=== PATIENT | female | born 1985 | race Caucasian/White ===

== ENCOUNTER 2023-12-19 07:53 | Outpatient (OUT) | payer MEDICAID, SELFPAY ==
--- NOTE | 2023-12-19 08:29 | ECG_ITS ---
[facility] Test Date: 2023-12-19 Pat Name: AKIRA العراقي Department: Room: - Gender: Female [employer] Administrator: : [id number] Requested By: OTILIO ALEXANDER Order Number: [id number] Reading MD: BALWINDER AARON Measurements Intervals Arthur Rate: 79 P: 72 NC: 164 QRS: 84 QRSD: 92 T: 38 QT: 376 QTc: 433 Interpretive Statements SINUS RHYTHM No previous ECG available for comparison Electronically Signed On 12-19-2023 23:03:18 EDT by BALWINDER AARON
--- NOTE | 2023-12-19 08:53 | PM.PRESUREVA ---
History of Present Illness History of Present Illness Chief complaint: missed ab Narrative: Patient presents for preadmission testing. The patient states she missed her period and has an unplanned , went for her appointment and it was determined that she had a missed . The patient states she has not had any abdominal pain, cramping, vaginal bleeding, nausea, vomiting, or any other complaints. Patient states she was diagnosed with type 1 diabetes while with her twins approximately one year ago when she experienced DKA. She states her blood sugars are usually well controlled, however she believes this morning she may have given herself too much insulin. She states she ate pasta for breakfast and gave herself six units of short-acting insulin and her blood sugar is now below sixty, and she is feeling like her sugar is low. The patient was given nutrition in preadmission testing, her blood sugar did increase and she is feeling better at this time. Review of Systems ROS Narrative REVIEW OF SYSTEMS: Negative except as stated in HPI, ten or more systems reviewed. Constitutional: No fever , chills, weakness ENT: No sore throat or epistaxis Cardiovascular: No edema, chest pain, palpitations, or activity intolerance Respiratory: No shortness of breath, cough, or wheezing Musculoskeletal: No joint pain or swelling Gastrointestinal: No abdominal pain, constipation, diarrhea, or vomiting Genitourinary: No dysuria or hematuria Neurological: No numbness, tingling, weakness, or headache Psychiatric: No mood changes [facility] Medical History (Updated 12/19/23 @ 08:36 by Ashley Solano NP) COVID-19 ?U07.1 - COVID-19 (ICD-10) PCOS (polycystic ovarian syndrome) ?E28.2 - Polycystic ovarian syndrome (ICD-10) Missed ?O02.1 - Missed (ICD-10) Type I diabetes mellitus ?E10.9 - Type 1 diabetes mellitus without complications (ICD-10) DKA (diabetic ketoacidosis) (08/2023) ?E11.10 - Type 2 diabetes mellitus with ketoacidosis without coma (ICD-10) Diastasis recti ?M62.08 - Separation of muscle (nontraumatic), other site (ICD-10) Delayed emergence from anesthesia ?T88.59XA - Other complications of anesthesia, initial encounter (ICD-10) Postoperative nausea and vomiting ?R11.2 - Nausea with vomiting, unspecified (ICD-10) ?Z98.890 - Other specified postprocedural states (ICD-10) Encounter for removal of skin lesion ?L98.9 - Disorder of the skin and subcutaneous tissue, unspecified (ICD-10) Surgical History (Updated 12/19/23 @ 08:36 by Ashley Solano NP) History of section ?Z98.891 - History of uterine scar from previous surgery (ICD-10) S/P middle ear reconstruction ?Z98.890 - Other specified postprocedural states (ICD-10) History of myringotomy ?Z98.890 - Other specified postprocedural states (ICD-10) History of dilation and curettage ?Z98.890 - Other specified postprocedural states (ICD-10) Family History (Updated 12/19/23 @ 08:36 by Ashley Solano NP) Other Family history of diabetes mellitus Family history of hypertension Family history of myocardial infarction Family history of skin cancer Family history of stroke Social History (Updated 12/19/23 @ 08:22 by Ashley Solano NP) Within the past year, how often did you have a drink containing alcohol: never Score interpretation: A score less than 3 is consistent with normal alcohol consumption. 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[employer], previous law enforcement Highest level of school completed/degree received: Associate degree: academic program Meds Home Medications and Allergies Home Medications ?Medication ?Instructions ?Recorded ?Confirmed ?Type blood-glucose meter,continuous 12/19/23 12/19/23 History (FreeStyle García 3 [place]) blood-glucose sensor (FreeStyle 12/19/23 12/19/23 History García 3 Sensor device) insulin glargine 100 unit/mL (3 20 unit subcut BID 12/19/23 12/19/23 History mL) subcutaneous pen (Lantus Solostar U-100 Insulin) insulin lispro 100 unit/mL 1 sliding scale dose subcut QID 12/19/23 12/19/23 History subcutaneous half-unit pen metformin 1,000 mg tablet 1,000 mg PO BID 12/19/23 12/19/23 History pen needle, diabetic 31 gauge x 12/19/23 12/19/23 History 3/16 Allergies Allergy/AdvReac Type Severity Reaction Status Date / Time oxycodone Allergy Hives Verified 12/19/23 08:16 Exam Narrative Exam Narrative: Constitutional: Awake, alert, comfortable, well-appearing, nontoxic, interactive, vital signs as charted Head: Normocephalic, atraumatic Neck: Supple, normal appearance, normal range of motion, no meningeal signs, no lymphadenopathy Respiratory: No respiratory distress, breath sounds clear Cardiovascular: Regular rate and rhythm, strong and regular heart tones Abdomen: Nontender, normal bowel sounds, soft, no CVA tenderness Musculoskeletal: Normal gait, no swelling or edema Skin: No rashes or induration, no lesions, only visible skin inspected Neuro: No neurological deficits, normal sensation Psychiatric: Oriented ?3, normal affect Assessment and Plan Assessment and Plan (1) Missed : Plan D and C scheduled with Dr. Samuel 12/20/2023.
[2023-12-19 08:59] LABS: Basophils Absolute Auto 0.1 10^3/uL (0.0-0.1); Basophils Percent Auto 0.5 % (0.2-2.0); Eosinophils Absolute Auto 0.1 10^3/uL (0.0-0.7); Eosinophils Percent Auto 0.9 % (0.9-7.0); Hematocrit 39.8 % (36.0-48.0); Immature Granulocytes Abs Auto 0.04 10^3/uL (0.00-0.03); Immature Granulocytes Pct Auto 0.3 % (0.0-0.5); Lymphocytes Absolute Auto 2.1 10^3/uL (1.2-3.8); Lymphocytes Percent Auto 17.3 % (20.5-60.0); Mean Corpuscular HGB Conc 35.2 g/dL (29.9-35.2); Mean Corpuscular Hemoglobin 32.9 pg (26.7-34.0); Mean Corpuscular Volume 93.6 fL (81.0-99.0); Mean Platelet Volume 8.8 fL (9.5-13.5); Monocytes Absolute Auto 0.6 10^3/uL (0.3-0.8); Monocytes Percent Auto 5.1 % (1.7-12.0); Neutrophils Absolute Auto 9.2 10^3/uL (1.4-6.5); Neutrophils Percent Auto 75.9 % (43.0-75.0); Platelet Count 284 10^3/uL (150-450); Red Blood Count 4.25 10^6/uL (4.20-5.40); Red Cell Distribution Width 11.6 % (11.0-15.0); White Blood Count 12.2 10^3/uL (4.0-11.0)
[2023-12-19 09:27] LABS: Anion Gap 11.6; Calcium 9.6 mg/dL (8.5-10.1); Carbon Dioxide 25.4 mmol/L (21.0-32.0); Chloride 105 mmol/L (98-107); Estimated GFR (African America >60 (>=60); Estimated GFR (Non-African Ame >60 (>=60); Glucose 89 mg/dL (74-106); Sodium 138 mmol/L (136-145)
[2023-12-19 10:18] LABS: BUN Creatinine Ratio 22.6
[2023-12-19 11:09] LABS: HCG Quantitative 32452 mIU/mL
== END 2023-12-19 07:54 | disposition home or self-care (01) ==
LOC: PST 07:58
PROVIDERS: PCP Family Medicine; Visit Provider Obstetrics & Gynecology
DX: Z01.810 Encounter for preprocedural cardiovascular examination (principal); Z01.812 Encounter for preprocedural laboratory examination; Z01.818 Encounter for other preprocedural examination; O02.1 Missed abortion
CPT/HCPCS: 80048; 84702; 85025; 93005; G0463

== ENCOUNTER 2023-12-20 06:02 | Day surgery (SDC) | payer MEDICAID, SELFPAY ==
[2023-12-19 08:47] VITALS: BP 110/72; PULSE 71; TEMP 36.6; O2SAT 98; BMI 25.7
[2023-12-20] VITALS (12 sets, daily range): BP systolic 102–124; BP diastolic 62–76; PULSE 69–93; TEMP 36.3; O2SAT 93–100; BMI 26.3
--- OUTSIDE RECORDS SUMMARY | 2023-12-20 06:04 | XMS_ITS | CCD ---
Author Organization [facility] Care Team Providers Care Quantitative Manager Name Role Phone NAIF, DR LOPES Primary Care Unavailable DANI, DR LEONEL Ro Attending Unavailable DANI, DR LEONEL Ro Consulting Unavailable DANI, DR LEONEL Ro Admitting Unavailable Rosette Disla MD Primary Care Provider [phone] NAIF ROSETTE French Referring Unavailable NAIF, ROSETTE Braswell Primary Care Unavailable MARTA TROTTER Admitting Unavailable MARTA TROTTER Attending Unavailable NAIF ROSETTE Braswell Primary Care Unavailable ANJELICA CARRERA Attending Unavailable NAIF, ROSETTE Braswell Primary Care Unavailable NAIF, ROSETTE Braswell Referring Unavailable NAIF, ROSETTE Braswell Primary Care Unavailable BARBI BARTON Attending Unavailable BARBI BARTON Referring Unavailable NAIF, ROSETTE Braswell Primary Care Unavailable BARBI BARTON Referring Unavailable NAIF, ROSETTE Braswell Primary Care Unavailable Naif BURDEN, Rosette Braswell Primary Care Provider [phone] PREMA CHRISTIANSON Attending Unavailable NAIF, ROSETTE Braswell Referring Unavailable NAIF, ROSETTE Braswell Primary Care Unavailable PREMA CHRISTIANSON Attending Unavailable NAIF ROSETTE Braswell Referring Unavailable NAIF, ROSETTE Braswell Primary Care Unavailable NAIF ROSETTE Braswell Attending Unavailable NAIF, ROSETTE Braswell Attending Unavailable ANIF ROSETTE Braswell Attending Unavailable JORDON MARROQUIN Attending Unavailable LOPEZ JORDON L Referring Unavailable TERAO JORDON L Referring Unavailable Allergies Allergy Classification Reported Allergen(s) Allergy Type Date of Onset Reaction(s) Facility (8 sources) Acetaminophen / oxyCODONE; Translations: [OXYCODONE-ACETAMI NOPHEN] Drug Allergy 09-04-2023 [facility] Medications Current Medications Medication Drug Class(es) Dates Sig (Normalized) Sig (Original) Continuous Blood Gluc Skein Winder (Lopoly García 3 [place]) device (3 sources) Start: 09-18-2023 Continuous Blood Gluc Skein Winder (FreeStyle García 3 [place]) device Indications: Diabetes mellitus type 2, insulin dependent (CMS/HCC) 1 kit every 14 (fourteen) days 1 each 1 09/18/2023 Active Continuous Blood Gluc Sensor (FreeStyle García 3 Sensor) misc (3 sources) Start: 09-18-2023 apply 1 dose transdermal route once Continuous Blood Gluc Sensor (FreeStyle García 3 Sensor) misc Indications: Diabetes mellitus type 2, insulin dependent (CMS/HCC) 1 patch every 14 (fourteen) days 12 each 3 09/18/2023 Active 0.5 ml dulaglutide 1.5 mg/ml auto-injector (8 sources) GLP-1 Receptor Agonist Start: 07-17-2023 TRULICITY 0.75 mg/0.5 mL pen injector Inject 0.5 mL (0.75 mg total) under the skin. 0 07/17/2023 Active Start: 07-17-2023 inject 0.75 mg by mayorga bcutaneous injection every week dulaglutide (Trulicity) 0.75 MG/0.5ML solution pen-injector Indications: Diabetes mellitus due to underlying condition with hyperglycemia, without long-term current use of insulin (CMS/HCC) Inject 0.75 mg under the skin 1 (one) time per week 4 each 11 07/17/2023 Active 3 ml insulin glargine 100 unt/ml pen injector (3 sources) Insulin Analog Start: 09-22-2023 End: 09-21-2024 inject 10 [IU] by subcutaneous injection at bedtime insulin glargine (Lantus SoloStar) 100 UNIT/ML pen Indications: Diabetes mellitus type 2, insulin dependent (CMS/HCC) Inject 10 Units under the skin at bedtime 3 mL 12 09/22/2023 09/21/2024 Active Start: 09-18-2023 End: 09-17-2024 inject 10 [IU] by subcutaneous injection at bedtime insulin glargine (Lantus) 100 UNIT/ML injection Indications: Diabetes mellitus type 2, insulin dependent (CMS/HCC) Inject 10 Units under the skin at bedtime 10 mL 12 09/18/2023 09/17/2024 Active 0.5 unt doses 3 ml insulin lispro 100 unt/ml pen injector (3 sources) Insulin Analog Start: 09-20-2023 insulin lispro (HumaLOG) 100 UNIT/ML injection Indications: Diabetes mellitus type 2, insulin dependent (CMS/HCC) Inject 4 Units under the skin in the morning and 4 Units at noon and 4 Units in the evening. Inject with meals. 3 each 1 09/20/2023 Active Start: 09-18-2023 Insulin Lispro (HumaLOG) 100 UNIT/ML solution Indications: Diabetes mellitus type 2, insulin dependent (CMS/HCC) Inject 4 Units as directed in the morning and 4 Units at noon and 4 Units in the evening. Inject before meals. 10 mL 1 09/18/2023 Active metFORMIN hydrochloride 1000 mg oral tablet (8 sources) Biguanide Start: 06-04-2023 End: 06-03-2024 take 1 tablet by mouth in the morning metFORMIN (Glucophage) 1000 MG tablet Indications: Type 2 diabetes mellitus without complication, without long-term current use of insulin (CMS/HCC) Take 1 tablet (1,000 mg) by mouth in the morning and 1 tablet (1,000 mg) in the evening. Take with meals. 180 tablet 3 06/04/2023 06/03/2024 Active Start: 11-16-2022 take 2 tablets by mo ut every twenty-four hours in the morning, then take 2 tablets by mouth at mealtime metFORMIN XR (GLUCOPHAGE XR) 500 mg 24 hr tablet Take 2 tablets (1,000 mg total) by mouth in the morning and 2 tablets (1,000 mg total) in the evening. Take with meals. 60 tablet 1 11/16/2022 Active MV-Min-Fe Fum-FA-DH A ( 1 PO) (4 sources) MV-Min- Fe Fum-FA-DHA ( 1 PO) Take by mouth. OTC 0 Active vits-iron fum-folic 27-1 mg tablet (4 sources) vits-ir on fum-folic 27-1 mg tablet Take by mouth daily. 0 Active Completed/Discontinued Medications Medication Drug Class(es) Dates Sig (Normalized) Sig (Original) amoxicillin 875 mg / clavulanate 125 mg oral tablet (3 sources) Penicillin-class Antibacterial Start: 08-25-2023 End: 09-17-2023 take 1 tablet by mouth once in the morning amoxicillin-pot clavulanate (AUGMENTIN) 875-125 mg per tablet Take 1 tablet by mouth in the morning and 1 tablet before bedtime. 0 08/25/2023 09/17/2023 Discontinued (Therapy completed) Blood Glucose Monitoring Suppl (True Metrix Air Glucose Meter) w/Device kit (3 sources) Start: 09-18-2023 End: 09-18-2023 Blood Glucose Monitoring Suppl (True Metrix Air Glucose Meter) w/Device kit Indications: Diabetes mellitus due to underlying condition with hyperglycemia, without long-term current use of insulin (CMS/HCC) 1 kit in the morning and 1 kit in the evening and 1 kit before bedtime. 1 kit 1 09/18/2023 09/18/2023 Discontinued (Ineffective) Start: 06-29-2023 End: 09-18-[address] (True Metrix Air Glucose Meter) w/Device kit Indications: Diabetes mellitus due to underlying condition with hyperglycemia, without long-term current use of insulin (CMS/HCC) 1 kit in the morning and 1 kit in the evening and 1 kit before bedtime. 1 kit 1 06/29/2023 09/18/2023 Discontinued (Reorder) Start: 06-29-2023 Blood Glucose Monitoring Suppl (True Metrix Air Glucose Meter) w/Device kit Indications: Diabetes mellitus due to underlying condition with hyperglycemia, without long-term current use of insulin (CMS/HCC) 1 kit in the morning and 1 kit in the evening and 1 kit before bedtime. 1 kit 1 06/29/2023 Active hydrocortisone 10 mg/ml topical cream (3 sources) Corticosteroid Start: 11-20-2022 End: 09-04-2023 hydrocortisone (HYTONE) 1 % cream Apply 1 Application topically in the morning and 1 Application before bedtime. 30 g 1 11/20/2022 09/04/2023 Discontinued (Therapy completed) Semaglutide,0.25 or 0.5MG/DOS, (Ozempic, 0.25 or 0.5 MG/DOSE,) 2 MG/3ML solution pen-injector (2 sources) Start: 06-04-2023 End: 09-18-2023 Semaglutide,0.25 or 0.5MG/DOS, (Ozempic, 0.25 or 0.5 MG/DOSE,) 2 MG/3ML solution pen-injector Indications: Type 2 diabetes mellitus without complication, without long-term current use of insulin (CMS/HCC) Inject 0.25 mg under the skin every 7 (seven) days for 14 days, THEN 0.5 mg every 7 (seven) days. .25 mg subcutaneous q week x 2 weeks then .5 mg qweek. 3 mL 1 06/04/2023 09/18/2023 Discontinued (Cost of medication) Start: 06-04-2023 Semaglutide,0. 25 or 0.5MG/DOS, (Ozempic, 0.25 or 0.5 MG/DOSE,) 2 MG/3ML solution pen-injector Indications: Type 2 diabetes mellitus without complication, without long-term current use of insulin (CMS/HCC) Inject 0.25 mg under the skin every 7 (seven) days for 14 days, THEN 0.5 mg every 7 (seven) days. .25 mg subcutaneous q week x 2 weeks then .5 mg qweek. 3 mL 1 06/04/2023 Active Problems Active Problems Problem Classification Problem Date Documented Date Episodic/Chronic Adjustment disorders (4 sources) Adjustment disorder with depressed mood; Translations: [Adjustment disorder with depressed mood] Onset: 12-25-2018 08-30-2022 Chronic Anxiety disorders (4 sources) Anxiety; Translations: [Anxiety disorder, unspecified] Onset: 01-27-2021 08-30-2022 Chronic Diabetes mellitus with complications (2 sources) Type 2 diabetes mellitus with diabetic nephropathy; Translations: [Secondary diabetes mellitus] Onset: 11-20-2022 09-18-2023 Chronic Diabetes mellitus without complication (6 sources) Type 2 diabetes mellitus; Translations: [Type 2 diabetes mellitus without complications] 11-20-2022 Chronic Esophageal disorders (4 sources) Gastroesophageal reflux disease without esophagitis; Translations: [Gastro-esophageal reflux disease without esophagitis] Onset: 12-25-2018 08-30-2022 Chronic Other and unspecified benign neoplasm (1 source) Lipoma of anterior chest wall; Translations: [Benign lipomatous neoplasm of skin and subcutaneous tissue of trunk] 08-27-2023 Episodic Other and unspecified benign neoplasm (1 source) Benign lipomatous neoplasm of skin and subcutaneous tissue of trunk; Translations: [Benign lipomatous neoplasm of skin and subcutaneous tissue of trunk] Onset: 08-27-2023 Episodic Other connective tissue disease (1 source) Diastasis recti; Translations: [Separation of muscle (nontraumatic), other site] 09-18-2023 Episodic Other skin disorders (2 sources) Epidermal cyst; Translations: [Epidermal cyst] Onset: 09-04-2023 Episodic Other skin disorders (1 source) Epidermoid cyst; Translations: [Epidermal cyst] 09-17-2023 Episodic Other upper respiratory disease (1 source) Nasal congestion; Translations: [NASAL CONGESTION] Onset: 04-28-2021 Episodic Other upper respiratory infections (1 source) Acute pharyngitis, unspecified; Translations: [ACUTE PHARYNGITIS UNSPECIFIED] Onset: 04-28-2021 Episodic Unclassified (3 sources) CONTACT W/AND (SUSP) EXPOS COVID-19; Translations: [CONTACT W/AND (SUSP) EXPOS COVID-19] Onset: 04-28-2021 Unclassified (1 source) left upper anterior chest wall lipoma Onset: 09-04-2023 Unclassified (1 source) Post-op Onset: 09-17-2023 Past or Other Problems Problem Classification Problem Date Documented Da te Episodic/Chronic Bacterial infection; unspecified site (4 sources) Bacteria present; Translations: [Streptococcus, group B, as the cause of diseases classified elsewhere] Onset: 10-13-2022 Resolved: 11-20-2022 11-20-2022 Episodic Early or threatened labor (8 sources) Finding of uterine contractions; Translations: [False labor, unspecified] Onset: 10-11-2022 Resolved: 10-18-2022 11-13-2022 Episodic Other complications of ; puerperium affecting management of mother (4 sources) Central nervous system malformation in fetus affecting obstetrical care; Translations: [ BOARD TURNER malformation, fetus 2] Onset: 08-01-2022 Resolved: 11-20-2022 11-20-2022 Episodic Other complications of ; puerperium affecting management of mother (4 sources) Abnormality of heart; Translations: [ cardiac anomaly complicating , antepartum, fetus 2] Onset: 11-01-2022 Resolved: 11-20-2022 11-20-2022 Episodic Other and delivery including normal (4 sources) Dichorionic diamniotic twin ; Translations: [Twin , dichorionic/diamnio tic, unspecified trimester] Onset: 08-01-2022 Resolved: 11-20-2022 11-20-2022 Episodic Otitis media and related conditions (8 sources) Perforation of left tympanic membrane; Translations: [Unspecified perforation of tympanic membrane, left ear] Onset: 09-30-2019 Resolved: 04-28-2022 04-28-2022 Episodic Residual codes; unclassified (4 sources) ultrasound scan abnormal; Translations: [Kidney abnormality of fetus on ultrasound] Onset: 08-31-2022 Resolved: 11-20-2022 11-20-2022 Episodic Thyroid disorders (4 sources) Subclinical hypothyroidism; Translations: [Other specified hypothyroidism] Onset: 01-15-2020 Resolved: 11-20-2022 11-20-2022 Chronic Unclassified (1 source) CONTACT W/AND (SUSP) EXPOS COVID-19; Translations: [CONTACT W/AND (SUSP) EXPOS COVID-19] Onset: 04-11-2021 Results Test Name Value Interpretation Reference Range Facil ity US OB < 14 WEEKS EARLYon US OB < 14 WEEKS EARLY FINDINGS: Comparison made with recent examination of December 12, 2023. Interval increase in size of of the pole currently current crown-rump length 10 mm in diameter would suggest a 7 week and 0 day gestations age however there is no yolk sac or cardiac activity identified at this time. Some complex fluid components are seen within the amniotic fluid of the gestational sac. No pelvic fluid. No adnexal mass. Septated left ovarian 1.5-2.0 cm benign cyst. IMPRESSION: Single intrauterine gestational sacr, minimal increase in size of the pole, no cardiac activity and no yolk sac seen at this time. Correlate with serial beta hCG, findings can be consistent with intrauterine demise. TRANSCRIBED BY: ELECTRONICALLY SIGNED BY: Johan Jovel MD Normal Not Available US OB < 14 WEEKS EARLYon US OB < 14 WEEKS EARLY FINDINGS: A single intrauterine gestational sac with several septations, yolk sac and pole (crown-rump length 7mm) suggests a 6 week and 4 day gestational age. No cardiac activity at this time. No significant subchorionic hemorrhage. Closed cervix. IMPRESSION: Single intrauterine gestational sac with pole, absent cardiac activity, 6 week and 4 day gestational age. Absence of productivity is worrisome for intrauterine demise however given the pole and present yolk sac with otherwise normal decidual reaction recommend at minimum follow up examinations for confirmation, further characterization. TRANSCRIBED BY: ELECTRONICALLY SIGNED BY: Johan Jovel MD Normal Not Available HbA1c (Bld) [Mass fraction]o n 09-18-2023 Interpretation and review of laboratory results Abnormal [facility] PO[facility] glycosylated hemoglobin (Hb A1C) docked deviceon 09-18-2023 HbA1c (Bld) [Mass fraction] 11.2 % [facility] HCG ( test) Ql (U)o n 09-04-2023 Beta HCG ( test) Ql (U) Negative Normal NEG [facility] Comment on above: Performed By: #### 2 106-3 #### [facility] ([id number]) [address] [place] [address], [place] [address] Surgical Pathologyon 024 Surgical Pathology Normal [facility] Comment on above: Result Comment: [facility] [address] [place] [address] Surgical Pathology Consultation Patient Name:LINDA العراقي:1985 (Age: 38)Gender:FTaken:4Reported:4Physician(s):Marta Trotter D.O. ([phone])Copy To: Rec. #:[id number]: #[id number] Final Pathologic Diagnosis Left anterior chest wall, excisional biopsy: Epidermal inclusion cyst with surrounding inflammation. Report Electronically Signed Out cjb/09/07/2023mitali Eddy MD Interpretation performed at [facility], [address] [place] [address], License number: [id number]. Clinical History Left upper anterior chest wall lipoma. Gross Description Received in formalin labeled MALCOM, left chest is a collapsed cyst, 3.5 x 2.0 x 1.0 cm, filled with a pale brown grumous material. The inner lining is entirely smooth, and there is adherent adipose tissue up to 1.0 cm in thickness. Gas Engine Performance Engineer sections are submitted in a single cassette. (1,ss,[id number], m6) CHRIS gv/09/04/2023EAK Specimen(s) Received Left anterior chest wall inclusion cyst Fee Codes(s): 1; 83054 BASIC METABOLIC PANLon 08-01 Anion gap [Moles/Vol] 20 mmol/L High 5-15 [facility] Comment on above: Performed By: #### B MP #### [facility] ([id number]) [address] [place] [address] Calcium [Mass/Vol] 10.1 mg/dL Normal 8.5-10.5 [facility] Comment on above: Performed By: #### B MP #### [facility] ([id number]) [address] [place] [address] Chloride [Moles/Vol] 101 mmol/L Normal 98-109 [facility] Comment on above: Performed By: #### B MP #### [facility] ([id number]) [address] [place] [address] CO2 [Moles/Vol] 15 mmol/L Low 22-32 [facility] Comment on above: Performed By: #### B MP #### [facility] ([id number]) [address] [place] [address] Creatinine [Mass/Vol] 0.60 mg/dL Normal 0.40-1.00 [facility] Comment on above: Result Comment: METH OD TRACEABLE TO IDMS STANDARD Performed By: #### B MP #### [facility] ([id number]) [address] [place] [address] eGFR (CKD-EPI) NON-RACE DEPENDENT >90 Normal >59 [facility] Comment on above: Result Comment: Reported eGFR is based on the CKD-EPI 2020 equation that does not use a race coefficient. Performed By: #### B MP #### [facility] ([id number]) [address] [place] [address] Glucose [Mass/Vol] 373 mg/dL High 65-99 [facility] Comment on above: Performed By: #### B MP #### [facility] ([id number]) [address] [place] [address] Potassium [Moles/Vol] 4.3 mmol/L Normal 3.5-5.0 [facility] Comment on above: Performed By: #### B MP #### [facility] ([id number]) [address] [place] [address] Sodium [Moles/Vol] 136 mmol/L Normal 134-146 [facility] Comment on above: Performed By: #### B MP #### [facility] ([id number]) [address] [place] [address] Urea nitrogen [Mass/Vol] 9 mg/dL Normal 5-23 [facility] Comment on above: Performed By: #### B MP #### [facility] ([id number]) [address] [place] [address] US OB 1ST Trimesteron 2021 US OB 1ST Trimester FINDINGS: Two intrauterine gestational sacs, each containing a pole with cardiac activity, crown rump length 3 mm consistent with a 5 week and 6 day gestational age (estimated date of delivery November 29, 2022). Bilateral heart flickers noted. No subchorionic hemorrhage. Closed cervix, 4 cm length. IMPRESSION: Diamniotic, dichorionic viable twin gestation Report reported and signed by Johan Jovel on 04/04/2022 1648 Normal [facility] Criminal Justice Teacher XR Hip Complete Left*on 01-12 XR Hip Complete Left* FINDINGS: Mild bilateral superior hip joint space loss. No pincer or CAM deformities. No evidence of cortical or stress fracture or osteonecrosis is present. Pelvic ring and sacral struts are intact. Soft tissues are relatively unremarkable. IMPRESSION: Minimal arthritis. Report reported and signed by Johan Jovel on 01/31/2022 1537 Normal [facility] Specialist Covid-19 PCR (CVDTB)on 03-15 SARS-CoV-2 (COVID-19) RNA SUSAN+probe Ql (Unsp spec) Not detected Normal NOT DETECTED [facility] Comment on above: Result Comment: This test is not yet approved or cleared by the [place] FDA. When there are no FDA-approved or cleared tests available, and other criteria are met, FDA can make tests available under an emergency access mechanism called an Emergency Use Authorization (EUA). The EUA for this test is supported by the Senior Investment Manager of Health and Human Service's (HHS's) declaration that circumstances exist to justify the emergency use of in vitro diagnostics for the detection and/or diagnosis of the virus that causes COVID-19. This EUA will remain in effect (meaning this test can be used) for the duration of the COVID-19 declaration justifying emergency of IVDs, unless it is terminated or revoked by FDA (after which the test may no longer be used). When diagnostic testing is negative, the possibility of a false negative should be considered in the context of a patient's recent exposures and the presence of clinical signs and symptoms consistent with SARS-CoV-2. Performed By: #### C VDAGS, CVDTB #### [facility] [address] [place], [place] [address] Sotero Christianson SYMPTOMATIC COVID-19 ANTIGEN on 04-11-2021 EUA Statement SEE BELOW Normal [facility] Comment on above: Result Comment: This test has not been FDA cleared or approved, but has been authorized by the FDA under an Emergency Use Authorization (EUA) for use by authorized laboratories certified under CLIA that meet the requirements to perform moderate or high complexity testing. This test has been authorized only for the detection of proteins from SARS-CoV-2, not for any other viruses or pathogens. The emergency use of this test is authorized for the duration of the declaration that circumstances exist justifying the authorization of emergency use of in vitro diagnostic tests for detection and/or diagnosis of Covid-19 under section 564(b)(1) of the Act, 21 U.S.C. 360bbb-3(b)(1), unless the declaration is terminated or authorization is revoked sooner. Performed By: #### C VDAGS, CVDTB #### [facility] [address] [place], [place] [address] Sotero Christianson SARS-CoV-2 (COVID-19) RNA SUSAN+probe Ql (Unsp spec) Negative Normal NEGATIVE [facility] Comment on above: Result Comment: CONF IRMATION BY PCR PENDING PER CDC GUIDELINES/ SYMPTOMATIC PATIENT. Performed By: #### C VDAGS, CVDTB #### [facility] [address] [place], [place] [address] Sotero Christianson Vital Signs Date Time Vital Sign Value Performing Clinician Facility 09-18-2023 15:39-0500 Body height 156.8 cm Rosette Disla MD Work Phone: [facility] 09-18-2023 15:39-0500 Body mass index (BMI) [Ratio] 20.84 kg/m2 Rosette Disla MD Work Phone: [facility] 09-18-2023 15:39-0500 Body weight 51.26 kg Rosette Disla MD Work Phone: [facility] 09-18-2023 15:39-0500 Diastolic blood pressure 68 mm[Hg] Rosette Disla MD Work Phone: [facility] 09-18-2023 15:39-0500 Heart rate 92 /min Rosette Disla MD Work Phone: [facility] 09-18-2023 15:39-0500 Respiratory rate 16 /min Rosette Disla MD Work Phone: [facility] 09-18-2023 15:39-0500 Systolic blood pressure 98 mm[Hg] Rosette Disla MD Work Phone: [facility] 09-17-2023 15:31-0500 Body height 154.9 cm [facility] Work Phone: [facility] 09-17-2023 15:31-0500 Body mass index (BMI) [Ratio] 21.2 kg/m2 Prema Christianson FRAME NAILER[employer]FOOD BEVERAGE SERVER Work Phone: [facility] 09-17-2023 15:31-0500 Body weight 50.89 kg Prema Christianson FRAME NAILER[employer]OD BEVERAGE SERVER Work Phone: [facility] 09-17-2023 15:31-0500 Diastolic blood pressure 74 mm[Hg] Prema Christianson FRAME NAILER-FOOD BEVERAGE SERVER [facility] 09-17-2023 15:31-0500 Heart rate 88 /min Prema Christianson FRAME NAILER-FOOD BEVERAGE SERVER Work Phone: [facility] 09-17-2023 15:31-0500 Systolic blood pressure 119 mm[Hg] Prema Christianson FRAME NAILER-FOOD BEVERAGE SERVER Work Phone: [facility] 08-27-2023 14:06-0500 Body height 154.9 cm Prema Christianson FRAME NAILER-FOOD BEVERAGE SERVER [facility] 08-27-2023 14:06-0500 Body mass index (BMI) [Ratio] 22.67 kg/m2 Prema Christianson FRAME NAILER-FOOD BEVERAGE SERVER Work Phone: [facility] 08-27-2023 14:06-0500 Body weight 54.43 kg Prema Christianson FRAME NAILER-FOOD BEVERAGE SERVER Work Phone: [facility] [facility] [employer] Encounters Encounter Date Encounter Type Care Provider Facility Start: 12-18-2023 ambulatory JORDON L FLORO Not Elza ilable Start: 12-12-2023 End: 12-13-2023 ambulatory JORDON L FLORO Not Available Start: 12-04-2023 End: 12-05-2023 ambulatory ROSETTE DISLA Not Available Start: 10-02-2023 End: 10-02-2023 ambulatory ROSETTE DISLA Not Available Start: 09-26-2023 Telephone encounter Rosette dudley MD Work Phone: [facility] Start: 09-20-2023 Telephone encounter Rosette dudley MD Work Phone: [facility] Start: 09-18-2023 End: 09-18-2023 ambulatory ROSETTE DISLA Not Available Start: 09-18-2023 End: 09-18-2023 Office outpatient visit 25 minutes Rosette Disla MD Work Phone: [facility] Comment on above: Diabetes mellitus ty pe 2, insulin dependent (CMS/HCC) (Primary Dx); Type 2 diabetes mellitus without complication, without long-term current use of insulin (CMS/[facility]); Diabetes mellitus due to underlying condition with hyperglycemia, without long-term current use of insulin (CMS/[facility]); Diastasis recti Start: 09-18-2023 Bamboo flowsheet Rosette Disla MD Work Phone: [facility] Start: 09-18-2023 Bamboo flowsheet Rosette Disla MD Work Phone: [facility] Start: 09-17-2023 End: 09-17-2023 ambulatory [facility] Start: 09-17-2023 End: 09-17-2023 Postop follow up visit related to original px Prema Christianson FRAME [employer]AGE SERVER Work Phone: [facility] Comment on above: Epidermal inclusion cyst (Primary Dx) Start: 09-04-2023 End: 09-04-2023 Evaluation and management of inpatient ANJELICAJuani CARRERA [facility] Start: 09-04-2023 End: 09-04-2023 Evaluation and management of inpatient MARTA VINESCASANDRAOrlando [facility] Start: 09-03-2023 End: 09-03-2023 ambulatory [facility] Pat Phone Call Provider 1 [facility] - Pre Admit Start: 08-27-2023 End: 08-27-2023 ambulatory [facility] Start: 08-27-2023 End: 08-27-2023 Office outpatient visit 15 minutes Prema Christianson [employer] Work Phone: [facility] Comment on above: Lipoma of anterior c hest wall (Primary Dx) Start: 08-08-2023 Telephone encounter Eugeniemele Frias er A [facility] Start: 08-01-2023 End: 08-02-2023 ambulatory BARBI Bren BARTON [facility] Start: 08-01-2023 Encounter for other preprocedural examination ROSETTE DISLA [facility] Start: 04-11-2021 End: 04-12-[address] ROSETTE DISLA Facility:H1 Procedures Date Procedure Procedure Detail Performing Clinician Start: 09-18-2023 Hemoglobin glycosyla zuleika a1c Rosette Disla MD Work Phone: Start: 08-27-2023 Follow-up visit Follow-up PREMA CHRISTIANSON Start: 11-20-2022 Adult depression screening assessment Prema Christianson [employer] Work Phone: Start: 09-13-2022 H/O: section History of delivery Prema Christianson [employer] Work Phone: Start: 04-03-2022 Microscopic observat ion [Identifier] in Cervix by Cyto stain Prema Christianson [employer] Work Phone: Start: 09-11-2019 Diabetic retinal eye exam Prema Christianson [employer] Work Phone: Plan of Treatment Date Care Activity Detail Author Start: 04-06-2027 Screening for malign ant neoplasm of cervix [facility] Start: 04-03-2025 Screening for malign ant neoplasm of cervix Pap Smear [facility] Start: 09-17-2024 Adult BMI Screening Adult BMI Screen ing [facility] Start: 09-17-2024 Tobacco Screening Tobacco Screening [facility] Start: 09-04-2024 Adult BMI Screening Adult BMI Screen ing [facility] Start: 09-04-2024 Tobacco Screening Tobacco Screening [facility] Start: 08-27-2024 Adult BMI Screening Adult BMI Screen ing [facility] Start: 08-27-2024 Tobacco Screening Tobacco Screening [facility] Start: 04-13-2024 Influenza vaccination Influenza Vacc ine [facility] Start: 02-10-2024 Influenza vaccination Influenza Vacc ine (#1) [facility] Comment on above: Postponed from 04/13 (Patient Refused) Start: 12-17-2023 Hemoglobin A1c measurement Diabetes: Hemoglobin A1C [facility] Start: 11-21-[address] [facility] Start: 10-02-2023 End: 10-02-2023 Patient encounter procedure 10/02/2023 2:20 PM EST Office Visit [facility] [address] [place] [phone] Rosette Disla MD [address] [place] [address] [facility] Start: 09-18-2023 End: 09-18-2023 Patient encounter procedure 09/18/2023 3:40 PM EST Office Visit [facility] [address] [place] [phone] Rosette Disla MD [address] [place] [address] Arrived [facility] Comment on above: Arrived Start: 09-17-2023 End: 09-17-2023 Patient encounter procedure 09/17/2023 3:30 PM EST Office Visit [facility] [address] [place] [address] Prema Christianson, 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 Surgery [address] [place] [address] Anjelica Carrera, DO [address] [place] [address] [facility] Surgery Start: 09-04-2023 End: 09-04-2023 EXCISION LIPOMA MIDSECTION EXCISION LIPOMA MIDSECTION left upper anterior chest wall lipoma 09/04/2023 1:00 PM EST [facility] Start: 09-04-2023 Subsequent hospital visit by physician 09/04/2023 1:00 PM EST Hospital Encounter [facility] [address] [place] [phone] Marta Trotter, DO [address] [place] [address] [facility] Start: 09-03-2023 End: 09-03-2023 ambulatory 09/03/2023 3:30 PM EST Support Visit [facility] - Pre Admit [address] [place] [id number] [facility] - Pre Admit Start: 08-23-2023 Hemoglobin A1c measurement Diabetes: Hemoglobin A1C [facility] Start: 04-13-2023 Influenza vaccination Influenza Vacc ine [facility] Start: 09-11-2021 Glaucoma screening Diabetes: R etinopathy Screening [facility] Start: 09-11-2020 Glaucoma screening Diabetic Op hthalmology Exam [facility] Start: 2005 Screening for malign ant neoplasm of cervix Pap Smear [facility] Start: 2003 DTaP,Tdap and Td Vaccines (1 - Tdap) DTaP,Tdap and Td Vaccines (1 - Tdap) [facility] Start: 2002 Diabetic foot examination Diabetic Foot Exam [facility] Start: 1984 Glaucoma screening Diabetic Op hthalmology Exam [facility] Start: 1984 Urine screening for protein Urine Microalbumin [facility] Payers Date Payer Category Payer Medicaid [id number] 2022 Medicaid [id number] 1984 Unknown [id number] 2.16.84 [id number] 1984 Unknown [id number] 2.16.84 0.1.016972.3.579.2.1286 1984 Unknown [id number] 2.16.84 0.1.020020.3.579.2.1286 1984 Unknown [id number] 2.16.84 0.1.630058.3.579.2.1286 1984 Unknown [id number] 2.16.84 0.1.990635.3.579.2.1286 1984 Unknown [id number] 2.16.84 0.1.481428.3.579.2.1286 1984 Unknown [id number] 2.16.84 0.1.446023.3.579.2.1286 1984 Unknown [id number] 2.16.84 0.1.844070.3.579.2.1286 1984 Unknown [id number] 2.16.8 40.1.125100.3.579.2.1286 1984 Unknown [id number] 2.16.84 0.1.493414.3.579.2.1286 1984 Unknown [id number] 2.16.84 0.1.240455.3.579.2.1259 1984 Unknown [id number] 2.16.84 0.1.327218.3.579.2.1259 1984 Unknown [id number] 2.16.84 0.1.510276.3.579.2.1259 1984 Unknown [id number] 2.16.84 0.1.886967.3.579.2.1259 1984 Unknown [id number] 2.16.84 0.1.886900.3.579.2.1259 1984 Unknown [id number] 2.16.84 0.1.149367.3.579.2.1259 1959 Unknown [id number] Social History Date Type Detail Facility Start: 04-07-2022 End: 09-17-2023 Tobacco smoking status NEIS Ex-smoker [facility] End: 08-13-2009 History of tobacco use Current smoker [facility] End: 08-13-2009 History of tobacco use Cigarette Smoker [facility] Start: 04-07-2022 End: 05-21-2023 Tobacco use and exposure Smokeless tobacco non-user [facility] Start: 08-02-2023 End: 08-27-2023 Alcohol intake Current drinker of alcohol (finding) [facility] Start: 09-23-2020 End: 08-27-2023 History of Social function [facility] Start: 09-23-2020 End: 08-27-2023 Tobacco use panel [facility] The thought of harmi ng myself has occurred to me Never [facility] Housing Instability Unknown [facility] Start: 08-01-2023 Alcohol Comment social [facility] Start: 1984 Sex Assigned At Not on file P [facility] Start: 09-17-2023 Tobacco Comment Social smoker [facility] Start: 05-21-2023 Tobacco smoking stat us NEIS Never smoked tobacco [facility] Start: 06-04-2023 End: 09-18-2023 Alcohol intake Lifetime non-drinker (finding) [facility] Start: 05-21-2023 Alcohol Comment caffeine: 1-2 cups per day [facility] Medical Equipment Procedure Code Equipment Code Equipment Origin al Text Equipment Identifier Dates Use as instructed [id number] Start: 06-29-2023 End: 06-28-2024 1 Lancet in the morning and 1 Lancet in the evening and 1 Lancet before bedtime. [id number] Start: 06-29-2023 Use as instructed [id number] Start: 09-20-2023 End: 09-19-2024 Clinical Notes 06-27-2022 to 09-26-2023 Telephone Encounter - Christiane Harman - 09/26/2023 9:50 AM ESTTelephone Encounter - Christiane Harman - 09/26/2023 9:50 AM ESTTelephone Encounter - Allie Lopez - 09/20/2023 9:28 AM EST Note Date & Type Note Facility 09-26-2023 Telephone encounter Note Pt started her Lispro 4units used for 1-2 days sugars wouldn't even read on the meter. So patient increased to 6 units , bs stayed over 500. So then she had left over lantus and is also using that 10un in am and 10un in the pm. Then her numbers averaging 200's so feels she could increase to 8units, plus the 10 un of lantus. Depends on her Carb intake Because of the increase she will need a new rx reflecting the increase. [facility] pharmacy Pt will need needle pen, for shots Freestyle in arm is telling her to check her bs so she will need test strips for the Freestyle 3 meter, when it goes above 251 the meter tells her to check herself and there seems to be a place to place the test . She will be dropping off paperwork / consent to share files with ENDO [facility] 09-26-2023 Miscellaneous Notes Pt started her Lispro 4units used for 1-2 days sugars wouldn't even read on the meter. So patient increased to 6 units , bs stayed over 500. So then she had left over lantus and is also using that 10un in am and 10un in the pm. Then her numbers averaging 200's so feels she could increase to 8units, plus the 10 un of lantus. Depends on her Carb intake Because of the increase she will need a new rx reflecting the increase. [facility] pharmacy Pt will need needle pen, for shots Freestyle in arm is telling her to check her bs so she will need test strips for the Freestyle 3 meter, when it goes above 251 the meter tells her to check herself and there seems to be a place to place the test . She will be dropping off paperwork / consent to share files with ENDO documented in this encounter [facility] 09-20-2023 Telephone encounter Note Patient is requesting lispro pens- you ordered the vial for patient and she never has drawn her insulin- she has always used the lispro pen. She also is requesting pen needles to [facility] in [place]. She is completely out of insulin and needs [place]. Thank you. [facility] 09-20-2023 Miscellaneous Notes Patient is requesting lispro pens- you ordered the vial for patient and she never has drawn her insulin- she has always used the lispro pen. She also is requesting pen needles [facility] [place]. She is completely out of insulin and needs [place]. Thank you. documented in this encounter [facility] 09-18-2023 History of Presen t illness Narrative Linda العراقي is a 38 y.o. female presents with chief complaint of Diabetes (Pt states that her glucometers are broken. She needs an rx for a glucometer. Pt has lost 17lbs since her last appt. She doesn't like the way she looks. She has been drinking 2 weight gain shakes daily to try to increase her weight.), Follow-up (Pt had the cyst removed from her chest. It was not cancerous.), and stomach bulge (Pt would like the Dr to look at her stomach. She states that she had 7lb twins 10 months ago and her stomach doesn't feel right. When she sits up she has a bulge in the middle of her stomach the size of an orange or grape fruit.) HPI: HPI Sister with insulin pump MEDICATIONS: Current Outpatient Medications Medication Instructions Blood Glucose Monitoring Suppl (True Metrix Air Glucose Meter) w/Device kit 1 kit, Does not apply, 3 times daily glucose blood (True Metrix Pro Blood Glucose) test strip Use as instructed Lancets 33G misc 1 Lancet , Does not apply, 3 times daily metFORMIN (GLUCOPHAGE) 1,000 mg, Oral, 2 times daily with meals MV-Min-Fe Fum-FA-DHA ( 1 PO) Oral, OTC Trulicity 0.75 mg, Subcutaneous, Weekly REVIEW OF SYMPTOMS: Review of Systems Constitutional: Positive for unexpected weight change. Respiratory: Negative. Cardiovascular: Negative. Gastrointestinal: Negative. Musculoskeletal: Negative. Neurological: Negative. Psychiatric/Behavioral: Negative. Endocrine: Positive for polydipsia and polyuria. OBJECTIVE: Visit Vitals BP 98/68 (BP Location: Right arm, Patient Position: Sitting, BP Cuff Size: Small adult) Pulse 92 Resp 16 Ht 5' 1.75 Wt 113 lb BMI 20.84 kg/m OB Status Having periods Smoking Status Never BSA 1.49 m Physical Exam Constitutional: Appearance: Normal appearance. She is normal weight. HENT: Head: Normocephalic and atraumatic. Nose: Nose normal. Mouth/Throat: Mouth: Mucous membranes are moist. Eyes: Pupils: Pupils are equal, round, and reactive to light. Cardiovascular: Rate and Rhythm: Normal rate and regular rhythm. Heart sounds: No murmur heard. Pulmonary: Effort: Pulmonary effort is normal. Breath sounds: Normal breath sounds. No wheezing or rhonchi. Abdominal: Comments: Diastisis recti Musculoskeletal: General: No swelling. Cervical back: Normal range of motion and neck supple. Right lower leg: No edema. Left lower leg: No edema. Skin: General: Skin is warm and dry. Findings: No rash. Neurological: Mental Status: She is alert and oriented to person, place, and time. Sensory: No sensory deficit. Gait: Gait normal. Psychiatric: Mood and Affect: Mood normal. Thought Content: Thought content normal. Judgment: Judgment normal. ASSESSMENT AND PLAN: Assessment/Plan Problem List Items Addressed This Visit None Visit Diagnoses Diabetes mellitus type 2, insulin dependent (CMS/[facility]) - Primary Relevant Medications Continuous Blood Gluc Sensor (FreeStyle García 3 Sensor) [facility] Continuous Blood Gluc Skein Winder (FreeStyle García 3 [place]) device insulin glargine (Lantus) 100 UNIT/ML injection Insulin Lispro (HumaLOG) 100 UNIT/ML solution Type 2 diabetes mellitus without complication, without long-term current use of insulin (CMS/HCC) Relevant Orders POCT glycosylated hemoglobin (Hb A1C) docked device (Completed) Diabetes mellitus due to underlying condition with hyperglycemia, without long-term current use of insulin (CMS/HCC) Diastasis recti reassurance I suspect she is more of a type 1 diabetes. , and will need insulin to control bs. As her bs are high despite healthy lifetyle. Discussed importance of insulin to prevent further weight loss Rx for garcía meter and low dose insulin. Check bs several time per day and return in 2 weeks to reviewed reading continue with glucophage and trulicity for now documented in this encounter [facility] 09-17-2023 History of Presen t illness Narrative Subjective Linda العراقي is a 38 y.o. female status post excision of left chest cyst on 09/04/2023. Doing well. She denies fevers and chills. She would like the Steri-Strips removed. Objective Vitals: 09/17/23 1531 BP: 119/74 Pulse: 88 Physical Exam Skin: General: Skin is warm and dry. Findings: No bruising or erythema. Comments: Left anterior chest incision clean, dry and intact. Steri-Strips removed in office today. No signs of infection. Final Pathologic Diagnosis Left anterior chest wall, excisional biopsy: Epidermal inclusion cyst with surrounding inflammation. Assessment Linda العراقي is a 38 y.o.female postop excision of left chest cyst. Plan Follow-up as needed. Epidermal inclusion cyst [L72.0] PREMA CHRISTIANSON, RENET[employer]OD BEVERAGE SERVER [facility] [place] This note was created with the assistance of a speech recognition program. While intending to generate a timely document that accurately reflects the content of the visit, no guarantee can be provided that every grammatical or spelling mistake has been or will be identified or corrected. Thank you for your understanding. ESAU Sparks 09/17/23 1541 documented [facility] this encounter [facility] 08-27[facility]2023 History of Presen t illness Narrative Images from the original note were not included. [facility] [address] [phone] CONSULT NOTE Linda العراقي 38 y.o. CHIEF COMPLAINT Chief Complaint Patient presents with Follow-up UPDATE H&P,SCHEDULE EXCISION OF LEFT UPPER CHEST LIPOMA Linda العراقي is a 38-year-old female who presents to the office with a lump on her left upper anterior chest. She has had it since she was a child. She states it is getting bigger. It bothers her and she has to take medication at times to help with the pain. She would like it removed. She recently just got over COVID, sinus infection and double ear infection. She denies any chest pain or shortness of breath. Notes from 07/25/2023: Linda العراقي is a 38-year-old female who presents with a lump on her upper left anterior chest wall which has been present since she was a child. She states it has been growing recently and becomes painful at times and she wishes to see about having it excised. It is sometimes itches. She denies any family history of muscle tumors. 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 Her father in September of this year from a series of strokes and an LA and had a history of stage IIC melanoma. He was 73 years of age. She has a history of type 2 diabetes mellitus. MEDICATION Current Outpatient Medications: amoxicillin-pot clavulanate (AUGMENTIN) 875-125 mg per tablet, Take 1 tablet by mouth in the morning and 1 tablet before bedtime., Disp: , Rfl: metFORMIN XR (GLUCOPHAGE XR) 500 mg 24 hr tablet, Take 2 tablets (1,000 mg total) by mouth in the morning and 2 tablets (1,000 mg total) in the evening. Take with meals. (Patient taking differently: Take 4 tablets (2,000 mg total) by mouth in the morning and 4 tablets (2,000 mg total) in the evening. Take with meals.), Disp: 60 tablet, Rfl: 1 vits-iron fum-folic 27-1 mg tablet, Take by mouth daily., Disp: , Rfl: TRULICITY 0.75 mg/0.5 mL pen injector, Inject 0.5 mL (0.75 mg total) under the skin., Disp: , Rfl: hydrocortisone (HYTONE) 1 % cream, Apply 1 Application topically in the morning and 1 Application before bedtime. (Patient not taking: Reported on 08/01/2023), Disp: 30 g, Rfl: 1 ALLERGY No Known Allergies MEDICAL HISTORY Past Medical History: Diagnosis Date COVID 08/06/2023 Diabetes mellitus type 2, controlled ([facility]) PCOS (polycystic ovarian syndrome) SURGICAL HISTORY Past Surgical History: Procedure Laterality Date REPEAT N/A 11/13/2022 Performed by Barbi Meng MD at [facility] OR SECTION EAR RECONSTRUCTION Bilateral TYMPANOPLASTY Bilateral SOCIAL HISTORY Social History Socioeconomic History Marital status: Single Spouse name: Not on file Number of children: Not on file Years of education: Not on file Highest education level: Not on file Occupational History Not on file Tobacco Use Smoking status: Former Types: Cigarettes Quit date: 2009 Years since quittin.0 Smokeless tobacco: Never Vaping Use Vaping Use: Never used Substance and Sexual Activity Alcohol use: Yes Comment: social Drug use: Never Sexual activity: Yes Partners: Male Comment: intercourse 10/29 AM Other Topics Concern Not on file Social History Narrative Not on file Social Determinants of Health Financial Resource Strain: Not on file Food Insecurity: No Food Insecurity (11/16/2022) Hunger Screening Food Insecurity - Worry: Never True Food Insecurity - Inability: Never True Transportation Needs: Not on file Physical Activity: Not on file Stress: Not on file Social Connections: Not on file Interpersonal Safety: Not on file FAMILY HISTORY Family History Problem Relation Age of Onset Thyroid Issues Mother Hypertension Mother Heart defect Mother addisons disease [place]'s disease Mother Thyroid Issues Father High Cholesterol Father Stroke Father Sudden Father heart attack Hypertension Father Heart attack Father Cancer Father MELANOMA Diabetes Sister Seizures Sister Asthma Neg Hx Arrhythmia Neg Hx Clotting disorder Neg Hx REVIEW OF SYSTEMS: Constitutional: Denies fevers, denies recent illnesses. Eyes: Denies any vision changes. ENT: Denies any throat pain. Neck: Denies any neck pain. Cardiovascular denies chest pain. Denies palpitations. Respiratory: Denies shortness of breath, denies cough, denies history of asthma or any other pulmonary illnesses. Gastrointestinal: Negative for abdominal pain, nausea, melena, hematochezia, weight loss, change in bowel habits or weight loss or emesis. Genitourinary negative for dysuria hematuria urinary frequency or urgency. Musculoskeletal: Negative for extremity pains or joint discomfort. Neurologic: No change in sensation or paresthesias or history of seizure disorder skin: No rashes. Hematologic: No anemia. No purpura. No petechiae and no prolonged or excessive bleeding Allergic and immunologic: No pruritus. No swelling. Endocrine: Positive type 2 diabetes mellitus; No unexplained weight loss. No polydipsia. No polyuria. No polyphagia. PHYSICAL EXAM Constitutional: She is oriented to person, place, and time. Vital signs are normal. She appears well-developed and well-nourished. HEENT: Head: Normocephalic and atraumatic. Eyes: Conjunctivae, EOM and lids are normal. Neck: Trachea normal. Neck supple. No thyroid mass present. Cardiovascular: Normal rate and regular rhythm. Pulmonary/Chest: Effort normal and breath sounds normal. On the left upper anterior chest wall she has a protruding mass approximately 4-5 cm in diameter slightly tender to touch. No redness noted. Neurological: She is alert and oriented to person, place, and time. Skin: Skin is warm, dry and intact. Psychiatric: She has a normal mood and affect. Her speech is normal and behavior is normal. Cognition and memory are normal. IMPRESSION 1. Anterior chest wall lipoma left upper chest versus inclusion cyst 2. History of type 2 diabetes mellitus ASSESSMENT & PLAN Excision of lipoma left upper chest wall under local with monitored anesthesia care. Risks benefits alternatives to the procedure may include infection, bleeding, recurrence, pain, or scarring. She understands and wishes to proceed. Evaluation included: Preparing to see the patient (e.g., review of tests) Obtaining and/or reviewing separately obtained history Performing a medically appropriate examination and/or evaluation Counseling and educating the patient/family/caregiver Referring and communicating with other health animal care service worker Lipoma of anterior chest wall [D17.1] ESAU SPARKS This note was created with the assistance of a speech recognition program. While intending to generate a timely document that accurately reflects the content of the visit, no guarantee can be provided that every grammatical or spelling mistake has been or will be identified or corrected. Thank you for your understanding. ESAU Sparks 08/27/23 1419 documented in this encounter [facility] 08-08-2023 Miscellaneous Notes To: PAIGE Suarez From: Leny Arguelles CMA I received a voicemail from this patient stating she tested positive for Covid today. I called PAT and spoke with Mariana. She stated their protocol is 10 days for surgeries. This patient is scheduled on 08/14/22 and will need to be rescheduled. Allyson, please call patient and reschedule surgery. Thank you, Leny I called the patient to reschedule her surgery and she is still very ill. I will call her in a couple weeks. documented in this encounter [facility] 08-08-2023 Telephone encounter Note To: PAIGE Suarez From: Leny Arguelles CMA I received a voicemail from this patient stating she tested positive for Covid today. I called PAT and spoke with Mariana. She stated their protocol is 10 days for surgeries. This patient is scheduled on 08/14/22 and will need to be rescheduled. Allyson, please call patient and reschedule surgery. Thank you, Leny [facility] 08-08-2023 Telephone encounter Note I called the patient to reschedule her surgery and she is still very ill. I will call her in a couple weeks. [facility] 06-27-2022 Note FINDINGS: Comparison made with prior ultrasound evaluation April 04, 2022. Viable dichorionic, diamniotic twin gestation. Baby A posterior placenta (149 beats per minute, PRABHJOT 12 cm) Baby B anterior placenta (151 beats per minute, PRABHJOT 12 cm) Normal and cardiac activity. Closed cervix, 6.8 cm length IMPRESSION: Viable twin gestation, normal cardiac and activity Report reported and signed by Johan Jovel on 06/27/2022 1147 [facility] Criminal Justice Teacher Evaluation note Diagnosis Lipoma of anterior chest wall- Primary documented in this encounter [facility] System[facility] note* Diagnosis Epidermal inclusion cyst- Primary Sebaceous cyst documented in this encounter [facility] SystemEvaluation note* Diagnosis Diabetes mellitus type 2, insulin dependent (CMS/HCC)- Primary Type 2 diabetes mellitus without complication, without long-term current use of insulin ([facility]) Diabetes mellitus due to underlying condition with hyperglycemia, without long- term current use of insulin ([facility]) Diastasis recti Diastasis of muscle documented in this encounter [facility]InstructionsNot on filedocumented in this encounterProMer[facility] SystemInstructionsNot on filedocumented in this encounterProMercer [facility] SystemInstructionsNot on filedocumented in this encounterProMercer [facility] SystemInstructionsNot on filedocumented in this encounterMer[facility] Summary Purpose Family History No Family History Records FoundNo Family History Records FoundNo Family History Records FoundNo Family History Records FoundNo Family History Records Found Advance Directives No Advanced Directives Records FoundLatest Code Status on File Code Status Date Activated Date Inactivated Comments Full Code 11/13/2022 1:12 PM 11/16/2022 9:02 PM Code Status History Code Status Date Activated Date Inactivated Comments Full Code 10/11/2022 2:10 AM 10/11/2022 2:25 PM Full Code 10/10/2022 2:59 PM 10/11/2022 1:00 AM Reason for Referral Specialty Diagnoses / Procedures Referred By Leandro crandall Referred To Contact Diagnoses Diabetes mellitus type 2, insulin dependent ([facility]/HCC) Rosette Disla MD [address] [facility] [place] [address] Referral ID Status Reason Start Date Expiration Date V isits Requested Visits Authorized [id number] Pending Review 1 1 Additional Source Comments INFORMATION SOURCE (unrecogn ized section and content) DATE CREATED AUTHOR 04/30/2021 [facility] DATE CREATED AUTHOR AUTHOR'S ORGANIZ ATION 06/27/2022 [facility] DATE CREATED AUTHOR AUTHOR'S ORGANIZ ATION 09/09/2023 [facility] DATE CREATED AUTHOR AUTHOR'S ORGANIZ ATION 09/22/2023 [facility] DATE CREATED AUTHOR AUTHOR'S ORGANIZ ATION 12/19/2023 [facility] Special[facility] Reason for Visit (unrecogniz ed section and content) Reason Comments Follow-up UPDATE H&P,SCHEDULE EXCISION OF LEFT UPPER CHEST LIPOMA Reason Comments Post-op Post op excision of lipoma performed 09/04/23 at [facility] Reason Comments Diabetes Pt states that her g lucometers are broken. She needs an rx for a glucometer. Pt has lost 17lbs since her last appt. She doesn't like the way she looks. She has been drinking 2 weight gain shakes daily to try to increase her weight. Follow-up Pt had the cyst viet emmett from her chest. It was not cancerous. stomach bulge Pt would like the Dr to look at her stomach. She states that she had 7lb twins 10 months ago and her stomach doesn't feel right. When she sits up she has a bulge in the middle of her stomach the size of an orange or grape fruit. Care Teams (unrecognized sec tion and content) Quantitative Manager Relationship Specialty Start Date End Date [facility] Dis[facility] [address] [place] [address] PCP - General Family Medicine 10/19/17 Quantitative Manager Relationship Specialty Start Date End Date Rosette Disla MD [address] [facility] [place] [address] PCP - General Family Medicine 10/19/17 Quantitative Manager Relationship Specialty Start Date End Date Rosette Disla MD [address] [facility] [place] [address] PCP - General Family Medicine 10/19/17 Quantitative Manager Relationship Specialty Start Date End Date Rosette Disla MD [address] [facility] [place] [address] PCP - General Family Medicine 12/19/22 Quantitative Manager Relationship Specialty Start Date End Date Rosette Disla MD [address] [facility] [place] [address] PCP - General Family Medicine 12/19/22 Quantitative Manager Relationship Specialty Start Date End Date Rosette Disla MD [address] [facility] [place] [address] PCP - General Family Medicine 12/19/22 Quantitative Manager Relationship Specialty Start Date End Date Rosette Disla MD [address] [facility] [place] [address] PCP - General Family Medicine 12/19/22 Quantitative Manager Relationship Specialty Start Date End Date Rosette Disla MD [address] [facility] [place] [address] PCP - General Family Medicine 10/19/17 FOR RECORDS PERTAINING TO PATIENTS WHO ARE OR HAVE BEEN ENROLLED IN A CHEMICAL DEPENDENCY/SUBSTANCEABUSE PROGRAM, SOME INFORMATION MAY BE OMITTED. This clinical summary was aggregated from multiple sources. Caution should be exercised in using it in the provision of clinical care. This summary normalizes information from multiple sources, and as a consequence, information in this document may materially change the coding, format and clinical context of patient data. In addition, data may be omitted in some cases. CLINICAL DECISIONS SHOULD BE BASED ON THE PRIMARY CLINICAL RECORDS. [facility]. provides no warranty or guarantee of the accuracy or completeness of information in this document.
--- NOTE | 2023-12-20 07:00 | US_ITS ---
[address] [address] Patient Name: AKRIA العراقي MRN: [id number] date: 1985 Sex: F Assigned Patient Location: [facility] Current Patient Location: [facility] Accession/Order Number: [id number] Exam Date: 12/20/2023 07:02 Report Date: 12/20/2023 07:57 At the request of: OTILIO ALEXANDER Procedure: US OB transvaginal Ultrasound pelvis, non-obstetric CLINICAL: confirm demise TECHNIQUE: Transvaginal pelvic ultrasound was performed. FINDINGS: Comparison: None. Uterus is retroverted in position. There is a single intrauterine gestational sac with single pole. Barlow-rump length measures 11.8 mm, correlating with age by ultrasound of 7 weeks 3 days. No heart tones or cardiac motion detected. Yolk sac is not seen. US/US OB transvaginal IMPRESSION: 1. Intrauterine gestation with single fetus without heart tones detected. Findings compatible with failed . age by ultrasound is 7 weeks 3 days. Electronically authenticated by: VENUS SCHWARTZ Date: 12/20/2023 07:57
[2023-12-20] MEDS: LACTATED RINGER'S SOLUTION 1,000 ML 50 ML IV (07:21)
[2023-12-20] MEDS: SCOPOLAMINE 1 MG/3 DAYS TRANSDERM PATCH 1 PATCH TD (07:36)
--- NOTE | 2023-12-20 08:11 | PM.ONB ---
Brief Operative Note Date of procedure: 12/20/23 Pre-op diagnosis general: missed first trimester Post-op diagnosis: same as pre-op Procedure: NAME OF PROCEDURE: [D&C suction ] PROCEDURE: The patient was taken back to the OR where she was given general anesthesia without difficulty. She was then placed in dorsal lithotomy position, prepped and draped in the normal sterile fashion. A weighted speculum was placed in the patient's vagina and the anterior lip of the cervix was identified and grasped with a single-tooth tenaculum. The patient was then gently dilated using Hegar dilators after we had sounded roughly to 11cm. The suction curette was then tested. The suction curette was then placed in the patient's uterus and products of conception were removed using an 9-Bulgarian suction curette. ?Excellent hemostasis was noted. The patient tolerated the procedure well. Sponge, lap, and needle counts were correct x 2. All instruments were then removed from the patient's vagina. The patient was taken to the Recovery Room in stable condition. ?? Anesthesia: MAC Surgeon: Harris Samuel Estimated blood loss (mL): 100 Pathology: other (poc) Condition: stable Disposition: PACU
== END 2023-12-20 09:35 | disposition home or self-care (01) ==
PROVIDERS: PCP Family Medicine; Visit Provider Obstetrics & Gynecology
PROC: (CPT 1965; principal; 2023-12-20 07:30)
DX: O02.1 Missed abortion (principal); E10.9 Type 1 diabetes mellitus without complications; Z79.4 Long term (current) use of insulin; Z86.16 Personal history of COVID-19; E28.2 Polycystic ovarian syndrome; Z87.891 Personal history of nicotine dependence; Z79.84 Long term (current) use of oral hypoglycemic drugs
CPT/HCPCS: 59820; 36415; 76817; 80048; 86850; 86900; 86901; 88305; J1094; J2704